=== PATIENT | male | born 2000 | race Two or more races ===

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

== ENCOUNTER 2022-07-16 00:08 | Emergency (ER) | payer MEDICAID ==
[~2022-07-16] VITALS: Ht 167.6 cm; Wt 72.0 kg
[2022-07-16 00:15] VITALS: BP 116/75
[2022-07-16] MEDS ORDERED: IBUPROFEN 600MG TABLET PO ONE (01:15)
[2022-07-16] MEDS ORDERED: IBUP-2029 MT (01:16)
== END 2022-07-16 01:28 | disposition home or self-care (01) ==
LOC: ER 01:11
DX: B34.9 Viral infection, unspecified (principal)
CPT/HCPCS: 99281

== ENCOUNTER 2024-05-09 07:27 | Emergency (ER) | payer MEDICAID, OTHER ==
[~2024-05-09] VITALS: Ht 170.2 cm; Wt 75.0 kg
[~2024-05-09 07:27] MED LIST: IBUP-2029 MT
[2024-05-09 07:40] VITALS: O2SAT 100
[2024-05-09] MEDS: ACETAMINOPHEN 325MG TABLET PO NR (08:51)
[2024-05-09] MEDS ORDERED: IBUP-2029 MT (10:53)
[2024-05-09] MEDS ORDERED: AMOX1TAB15 MT (10:53)
[2024-05-09 11:17] VITALS: BP 138/77; PULSE 98; RESP 16; TEMP 37.1; O2SAT 100
== END 2024-05-09 11:20 | disposition home or self-care (01) ==
LOC: ER 07:32
DX: J02.9 Acute pharyngitis, unspecified (principal)
CPT/HCPCS: 87070; 87430; 87804; 99291